=== PATIENT | female | born 2005 | race Caucasian/White ===

== ENCOUNTER 2024-03-26 14:30 | Emergency (ER) | payer OTHER | END 2024-03-26 17:10 | disposition home or self-care (01) | LOC: MW.ED 14:30 | DX: O99.344 Other mental disorders complicating childbirth (principal); F32.A Depression, unspecified; Z3A.14 14 weeks gestation of pregnancy; Z75.8 Other problems related to medical facilities and other health care; Z86.16 Personal history of COVID-19; Z79.899 Other long term (current) drug therapy; Z88.0 Allergy status to penicillin | CPT/HCPCS: 99284 ==

== ENCOUNTER 2024-04-27 01:30 | Emergency (ER) | payer OTHER ==
[2024-04-27 02:16] LABS: BILIRUBIN,URINE NEGATIVE (NEGATIVE); COLOR,URINE YELLOW; GLUCOSE,URINE NEGATIVE (NEGATIVE); KETONES,URINE 15 mg/dL (NEGATIVE); LEUKOCYTE ESTERASE,URINE TRACE (NEGATIVE); NITRITE,URINE NEGATIVE (NEGATIVE); OCCULT BLOOD,URINE MODERATE (NEGATIVE); PROTEIN,URINE NEGATIVE (NEGATIVE); UROBILINOGEN,URINE 0.2 EU/dL (<2.0)
[2024-04-27 02:17] LABS: APPEARANCE,URINE HAZY
[2024-04-27 02:18] LABS: BACTERIA,URINE FEW (NEGATIVE); MUCUS,URINE MODERATE (NONE-MOD); SQUAMOUS EPITHELIAL CELLS,UR FEW
== END 2024-04-27 04:30 | disposition home or self-care (01) ==
LOC: MW.ED 01:30
DX: O20.9 Hemorrhage in early pregnancy, unspecified (principal); Z3A.19 19 weeks gestation of pregnancy; Z88.0 Allergy status to penicillin; Z75.8 Other problems related to medical facilities and other health care
CPT/HCPCS: 36415; 76805; 81001; 85018; 86850; 86900; 86901; 87086; 96372; 99284; J2791